=== PATIENT | female | born 1965 | race Caucasian/White ===

== ENCOUNTER 2021-01-23 20:04 | Emergency (ER) | payer OTHER ==
[~2021-01-23] VITALS: Ht 157.5 cm; Wt 54.4 kg
[2021-01-23 21:37] VITALS: BP 154/91
== END 2021-01-23 21:28 | disposition home or self-care (01) ==
LOC: ER 20:04
DX: M25.531 Pain in right wrist (principal); W18.30XA Fall on same level, unspecified, initial encounter; Y93.89 Activity, other specified; Y92.89 Other specified places as the place of occurrence of the external cause; Y99.9 Unspecified external cause status